=== PATIENT | male | born 1960 | race Caucasian/White ===

== ENCOUNTER 2021-01-25 11:00 | Outpatient (CLI) | payer OTHER, SELFPAY ==
--- NOTE | 2021-01-25 11:11 | CT_ITS ---
WS: [id number] CT CHEST WITH INTRAVENOUS CONTRAST HISTORY: NODULE LEFT LUNG TECHNIQUE: Contiguous 5 mm axial imaging performed on the thorax. Coronal and sagittal reformats are submitted. All CT scans at [facility] use at least one of these dose optimization techniq ues: automated exposure control; mA and/or kV adjustment per patient size (includes targeted exams wh ere dose is matched to clinical indication); or iterative reconstruction. CONTRAST: Omnipaque 300; 95 mL IV. DLP: 915.67 mGycm COMPARISON: None available. Lungs and central airway: Moderate centrilobular emphysema. Lungs are hyperinflated. Benign calcified granuloma in the lingula. Very mild dependent changes posteriorly. No suspicious nodules or masses. Pleura: Normal. No pleural effusion. Heart and pericardium: Normal size heart with no pericardial effusion. Mediastinum and tracie: No mediastinum or hilar adenopathy. Vessels: Normal size aortic and pulmonary artery. No coronary artery calcifications. Chest wall and lower neck: No soft tissue masses. Upper abdomen: Visualized liver is negative. No adrenal mass. Low-attenuation 9 mm nodule in the zenaida phery of the spleen is probably a small cyst. Osseous structures: No destructive process. CT/CT chest w con* [id number] IMPRESSION: 1. No suspicious noncalcified mass or nodule. 2. Benign granuloma in the lingula. 3. Centrilobular emphysema. 4. No adenopathy.
[2021-01-25 11:34] LABS: Blood Urea Nitrogen 11 mg/dL (8-23); Glomerular Filtration Rate 98.3 mL/min (90-130)
[2021-01-25] MEDS: iohexol 300 mg/mL 100 mL Btl IV (11:44)
== END 2021-01-25 11:01 | disposition home or self-care (01) ==
PROVIDERS: Visit Provider Nurse Practitioner
DX: R91.1 Solitary pulmonary nodule (principal); L92.9 Granulomatous disorder of the skin and subcutaneous tissue, unspecified; J43.2 Centrilobular emphysema
CPT/HCPCS: 71260; 82565; 84520; Q9967

== ENCOUNTER 2022-03-01 06:00 | Outpatient (RCR) | payer OTHER, SELFPAY | END 2022-03-15 23:59 | disposition home or self-care (01) | LOC: GPT 06:00 | PROVIDERS: Referring Provider Nurse Practitioner; Visit Provider Nurse Practitioner | DX: M75.81 Other shoulder lesions, right shoulder (principal) | CPT/HCPCS: 97110; 97112; 97140; 97162 ==

== ENCOUNTER 2022-03-16 06:00 | Outpatient (RCR) | payer OTHER, SELFPAY | END 2022-04-14 23:59 | disposition home or self-care (01) | LOC: GPT 06:00 | PROVIDERS: Referring Provider Nurse Practitioner; Visit Provider Nurse Practitioner | DX: M75.81 Other shoulder lesions, right shoulder (principal) | CPT/HCPCS: 97110; 97140 ==

== ENCOUNTER 2022-08-11 06:00 | Outpatient (RCR) | payer OTHER, SELFPAY | END 2022-08-15 23:59 | disposition home or self-care (01) | LOC: GPT 06:00 | PROVIDERS: Visit Provider Orthopaedic Surgery | DX: S46.091D Other injury of muscle(s) and tendon(s) of the rotator cuff of right shoulder, subsequent encounter (principal); X58.XXXD Exposure to other specified factors, subsequent encounter; Z47.89 Encounter for other orthopedic aftercare | CPT/HCPCS: 97110; 97140; 97161 ==

== ENCOUNTER 2022-08-16 06:00 | Outpatient (RCR) | payer OTHER, SELFPAY | END 2022-09-12 23:59 | disposition home or self-care (01) | LOC: GPT 06:00 | PROVIDERS: Visit Provider Orthopaedic Surgery | DX: Z47.89 Encounter for other orthopedic aftercare (principal) | CPT/HCPCS: 97110; 97112; 97140; 97530 ==

== ENCOUNTER 2022-09-13 06:00 | Outpatient (RCR) | payer OTHER, SELFPAY | END 2022-10-13 23:59 | disposition home or self-care (01) | LOC: GPT 06:00 | PROVIDERS: Visit Provider Orthopaedic Surgery | DX: Z48.89 Encounter for other specified surgical aftercare (principal) | CPT/HCPCS: 97110; 97112; 97140; 97530 ==

== ENCOUNTER 2022-10-14 06:00 | Outpatient (RCR) | payer OTHER, SELFPAY | END 2022-11-12 23:59 | disposition home or self-care (01) | LOC: GPT 06:00 | PROVIDERS: Visit Provider Orthopaedic Surgery | DX: Z47.89 Encounter for other orthopedic aftercare (principal); Z98.890 Other specified postprocedural states; M25.511 Pain in right shoulder; M25.611 Stiffness of right shoulder, not elsewhere classified | CPT/HCPCS: 97140; 97164; 97530 ==